=== PATIENT | female | born 1980 | race Caucasian/White ===

== ENCOUNTER 2017-11-28 10:13 | Emergency (ER) | payer OTHER ==
[2017-11-28 10:19] VITALS: BP 129/58; PULSE 79; RESP 18; TEMP 98.1
[2017-11-28] MEDS ORDERED: IBUPROFEN 600 MG TAB PO STA (10:33)
[2017-11-28] MEDS ORDERED: ONDANSETRON ODT 4 MG TAB PO STA (10:33)
[2017-11-28] MEDS ORDERED: traMADol 50 MG TAB PO STA (10:34)
--- NOTE | 2017-11-28 10:37 | ED ---
Upper Extremity HPI - General Chief Complaint: Extremity Injury, Upper Stated Complaint: right arm pain Time Seen by Provider: 11/28/17 10:21 Source: patient, RN notes reviewed Mode of arrival: ambulatory Limitations: no limitations - History of Present Illness Initial Comments: This a 36-year-old female presents emergency Department chief complaint right elbow pain. Patient states in bilateral last weeks getting progressively worse. She states that she's tried salt, medication minimal relief. Patient denies any discoloration, swelling or known trauma. She states it may have started after shoveling snow. She states it is worse with certain movements and seems to radiate at times. Patient is right-hand dominant. Denies any neck pain, headache, dizziness, chest pain or shortness of breath. - Related Data Previous Rx's Medication Instructions Recorded Ibuprofen [Motrin] 600 mg PO Q8HR PRN #30 tab 11/28/17 traMADol HCl [Ultram] 50 mg PO Q6H PRN #20 tab 11/28/17 Allergies Allergy/AdvReac Type Severity Reaction Status Date / Time Penicillins AdvReac Unknown Verified 11/28/17 10:39 Review of Systems ROS Statement: Those systems with pertinent positive or pertinent negative responses have been documented in the HPI. ROS Other: All systems not noted in ROS Statement are negative. Past Medical History Past Medical History: No Reported History History of Any Multi-Drug Resistant Organisms: None Reported Past Surgical History: Hysterectomy Smoking Status: Current every day smoker Past Alcohol Use History: Occasional Past Drug Use History: None Reported General Exam Limitations: no limitations General appearance: alert, in no apparent distress Head exam: Present: atraumatic, normocephalic, normal inspection Neck exam: Present: normal inspection, full ROM. Absent: tenderness, meningismus, lymphadenopathy Respiratory exam: Present: normal lung sounds bilaterally. Absent: respiratory distress, wheezes, rales, rhonchi, stridor Cardiovascular Exam: Present: regular rate, normal rhythm, normal heart sounds. Absent: systolic murmur, diastolic murmur, rubs, gallop, clicks Extremities exam: Present: other (Right elbow patient has full range of motion neurovascular intact right arm, radial pulses equal bilaterally there is no discoloration or swelling to her arm. Patient reports mild discomfort tenderness over the radial head region patient reports pain with pronation supination and resisted wrist extension. 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 Absent: motor sensory deficit Course Vital Signs 11/28/17 10:16 Temperature 98.1 F Pulse Rate 79 Respiratory 18 Rate Blood Pressure 129/58 O2 Sat by Pulse 100 Oximetry Medical Decision Making - Medical Decision Making 36-year-old female presented emergency from for right elbow pain. Patient's symptoms are consistent with lateral epicondylitis. Patient had x-ray which showed no acute abnormality. Patient is normal neurovascular status. Patient will be discharged with anti-inflammatories, tramadol advised follow-up with orthopedics return for any worsening symptoms. She should wear tennis elbow brace. Disposition Clinical Impression: Lateral epicondylitis of right elbow Disposition: HOME SELF-CARE Condition: Stable Instructions: Tennis Elbow (ED), Elbow Bursitis (ED) Additional Instructions: Please return to the Emergency Department if symptoms worsen or any other concerns. Prescriptions: Ibuprofen [Motrin] 600 mg PO Q8HR PRN #30 tab PRN Reason: Pain traMADol HCl [Ultram] 50 mg PO Q6H PRN #20 tab PRN Reason: Pain Referrals: None,Stated [Primary Care Provider] - 1-2 days Daniel Ibrahim DO [Doctor of Osteopathic Medicine] - 1-2 days Time of Disposition: 11:00
--- NOTE | 2017-11-28 10:46 | XR ---
EXAMINATION TYPE: XR elbow complete RT DATE OF EXAM: 11/28/2017 COMPARISON: NONE HISTORY: Pain FINDINGS: Three views of the elbow demonstrate no pathologic joint effusion. The osseous structures are intact . There is no acute fracture or dislocation. IMPRESSION: 1. No acute fracture or dislocation. If symptoms persist follow-up study in 7 to 10 days could be ob tained.
[2017-11-28] MEDS ORDERED: ONDANSETRON 4 MG ODT STARTER PACK 2 TAB BTL PO STA (11:11)
== END 2017-11-28 11:19 | disposition home or self-care (01) ==
LOC: EC 10:13
DX: M77.11 Lateral epicondylitis, right elbow (principal); F17.200 Nicotine dependence, unspecified, uncomplicated; Z88.0 Allergy status to penicillin
CPT/HCPCS: 73080; 99283; S0119

== ENCOUNTER 2018-03-18 11:13 | Emergency (ER) | payer OTHER ==
[2018-03-18 11:24] VITALS: TEMP 98.4
--- NOTE | 2018-03-18 12:24 | ED ---
Female Urogenital HPI - General Chief complaint: Urogenital Stated complaint: Female Time Seen by Provider: 03/18/18 11:34 Source: patient, RN notes reviewed, old records reviewed Mode of arrival: ambulatory Limitations: no limitations - History of Present Illness Initial comments: 37-year-old female presents emergency room with a chief complaint of vaginal irritation. She reports that she's been having symptoms for the past week. She reports severe pain with touching her skin, as well as purulent vaginal discharge. She reports of having these symptoms after returning from seeing her fiance in [place]. - Related Data Previous Rx's Medication Instructions Recorded Acyclovir 400 mg PO TID 10 Days 03/18/18 HYDROcodone/APAP 5-325MG [[place] 1 tab PO Q6HR PRN #10 tab 03/18/18 5-325] metroNIDAZOLE [Flagyl] 500 mg PO BID #14 tab 03/18/18 Allergies Allergy/AdvReac Type Severity Reaction Status Date / Time Penicillins AdvReac Unknown Verified 03/18/18 11:24 Review of Systems ROS Statement: Those systems with pertinent positive or pertinent negative responses have been documented in the HPI. ROS Other: All systems not noted in ROS Statement are negative. Past Medical History Past Medical History: No Reported History History of Any Multi-Drug Resistant Organisms: None Reported Past Surgical History: Hysterectomy Additional Past Surgical History / Comment(s): cyst from cervix Past Psychological History: No Psychological Hx Reported Smoking Status: Current every day smoker Past Alcohol Use History: Occasional Past Drug Use History: None Reported General Exam - General Exam Comments Initial Comments: 29-year-old female. Alert and oriented. No acute distress. Limitations: no limitations General appearance: alert, in no apparent distress Head exam: Present: atraumatic, normocephalic, normal inspection Eye exam: Present: normal appearance, PERRL, EOMI. Absent: scleral icterus, conjunctival injection, periorbital swelling ENT exam: Present: normal exam, mucous membranes moist Neck exam: Present: normal inspection. Absent: tenderness, meningismus, lymphadenopathy Respiratory exam: Present: normal lung sounds bilaterally. Absent: respiratory distress, wheezes, rales, rhonchi, stridor Cardiovascular Exam: Present: regular rate, normal rhythm, normal heart sounds. Absent: systolic murmur, diastolic murmur, rubs, gallop, clicks GI/Abdominal exam: Present: soft, normal bowel sounds. Absent: distended, tenderness, guarding, rebound, rigid External exam: Present: lesions (multiple .5 cm ulceration over labia majora and minora. Consistent with HSV. ). Absent: normal external exam Speculum exam: Present: vaginal discharge (copious purulent vaginal discharge), cervical discharge. Absent: normal speculum exam By manual exam: Present: normal by manual exam. Absent: cervical motion tenderness, adnexal tenderness, adnexal mass, uterine enlargement, uterine tenderness Extremities exam: Present: normal inspection, full ROM, normal capillary refill. Absent: tenderness, pedal edema, joint swelling, calf tenderness Back exam: Present: normal inspection Neurological exam: Present: alert, oriented X3, CN II-XII intact Psychiatric exam: Present: normal affect, normal mood Skin exam: Present: warm, dry, intact, normal color. Absent: rash Course Vital Signs 03/18/18 03/18/18 11:20 13:52 Temperature 98.4 F Pulse Rate 108 H 112 H Respiratory 18 16 Rate Blood Pressure 119/78 136/78 O2 Sat by Pulse 100 95 Oximetry Medical Decision Making - Medical Decision Making This is a a 37 year old female with vaginal irritation and discharge after returning home from [place] after seeing significant other. It appears that patient has HSV outbreak, no prior history. Will start the patient on acyclovir. During pelvic exam patient was extremely tender over open lesions from HSV. Patient also was found to have copious vaginal discharge. Discussed treatment for all STD prior to culture returning. Patient agrees, and was given Rocephin, Azithromycin, and Acyclovir in ED. Given a pain pill as well. Will treat the patient for BV, and patient trichomonas test is pending at this time. Will treat with Rx of Flagyl for one week. Discussed [facility] and PCP follow up. Return parameters discussed. - Lab Data Lab Results 03/18/18 03/18/18 03/18/18 Range/Units 12:20 12:20 13:15 Urine Color Yellow Urine Appearance Clear (Clear) Urine pH 6.5 (5.0-8.0) Ur Specific [place] 1.016 (1.001-1.035) Urine Protein Negative (Negative) Urine Glucose (UA) Trace H (Negative) Urine Ketones Negative (Negative) Urine Blood Negative (Negative) Urine Nitrite Negative (Negative) Urine Bilirubin Negative (Negative) Urine Urobilinogen <2.0 (<2.0) mg/dL Ur Leukocyte Esterase Small H (Negative) Urine RBC 3 (0-5) /hpf Urine WBC 4 (0-5) /hpf Ur Squamous Epith Cells 1 (0-4) /hpf Urine Mucus Occasional H (None) /hpf Urine HCG, Qual Not Detected (Not Detectd) Trichomonas Ag (Rapid) Positive H (Negative) Disposition Clinical Impression: Herpes genitalia, Vaginal Discharge Disposition: HOME SELF-CARE Condition: Good Instructions: Genital Herpes Simplex (ED) Additional Instructions: Patient advised to follow-up with primary care provider. He'll be notified of your results in 1-2 days. Return to emergency department if any alarming signs or symptoms occur. Prescriptions: Acyclovir 400 mg PO TID 10 Days HYDROcodone/APAP 5-325MG [[place] 5-325] 1 tab PO Q6HR PRN #10 tab PRN Reason: Pain metroNIDAZOLE [Flagyl] 500 mg PO BID #14 tab Is patient prescribed a controlled substance at d/c from ED?: Yes When asked, does pt state using other controlled substances?: No If prescribed controlled substance>3 days was MAPS reviewed?: Prescribed <3 Days If opioid is for acute pain is fill amount 7 days or less?: Yes If Rx opioid, was Start Talking consent form obtained?: Yes Referrals: Kenny Patel MD [Primary Care Provider] - 1-2 days Time of Disposition: 13:06
[2018-03-18 13:00] LABS: Appearance,Urine Clear (Clear); Bilirubin,Urine Negative (Negative); Blood,Urine Negative (Negative); Color,Urine Yellow; Glucose,Urine (UA) Trace (Negative); Ketones,Urine Negative (Negative); Leukocyte Esterase,Urine Small (Negative); Mucus,Urine Occasional /hpf; Nitrite,Urine Negative (Negative); PH, Urine 6.5 (5.0-8.0); Protein,Urine Negative (Negative); RBC,Urine 3 /hpf (0-5); Specific Gravity,Urine 1.016 (1.001-1.035); Squamous Epithelial Cell,Urine 1 /hpf (0-4); Urobilinogen,Urine <2.0 mg/dL (<2.0); WBC,Urine 4 /hpf (0-5)
[2018-03-18] MEDS ORDERED: ACYCLOVIR 400 MG/10 ML CUP PO ONE (13:04)
[2018-03-18] MEDS ORDERED: cefTRIAXone 250 MG VIAL IM STA (13:04)
[2018-03-18] MEDS ORDERED: HYDROcodone/APAP 5-325MG 1 EACH TAB PO STA (13:04)
[2018-03-18] MEDS ORDERED: AZITHROMYCIN 500 MG TAB PO STA (13:04)
[2018-03-18] MEDS ORDERED: ACYCLOVIR 200 MG CAP PO ONE (13:30)
[2018-03-18 13:53] VITALS: BP 136/78; PULSE 112; RESP 16
[2018-03-21 14:43] LABS: N. gonorrhoeae,PCR Negative (Neg,Equiv); Neisseria Source Vagina
[2018-03-21 14:50] LABS: C. trachomatis,PCR Negative (Neg,Equiv); Chlamydia trachomatis Source Vagina
== END 2018-03-18 13:56 | disposition home or self-care (01) ==
LOC: EC 11:13
DX: A60.09 Herpesviral infection of other urogenital tract (principal); N89.8 Other specified noninflammatory disorders of vagina; F17.200 Nicotine dependence, unspecified, uncomplicated; Z88.0 Allergy status to penicillin
CPT/HCPCS: 81001; 81025; 87808; 87491; 87591; 87070; 99284; 96372; J0696; 87205

== ENCOUNTER 2018-03-25 11:37 | Emergency (ER) | payer OTHER ==
[2018-03-25 11:50] VITALS: BP 113/76; PULSE 103; RESP 18; TEMP 98.3
--- NOTE | 2018-03-25 12:41 | ED ---
General Adult HPI - General Chief complaint: Recheck/Abnormal Lab/Rx Stated complaint: med refill Time Seen by Provider: 03/25/18 12:11 Source: patient, RN notes reviewed Mode of arrival: ambulatory Limitations: no limitations - History of Present Illness Initial comments: 37-year-old female presented to the emergency room for recheck. Patient was seen in the emergency room one week ago diagnosed with Trichomonas and bacterial vaginosis, herpes flareup. Patient states she's been on acyclovir and Flagyl. She states she took her last dose of Flagyl which she was on for 7 days twice a day. Patient states still having some discharge at times. She does admit that has been big improvement. She states she was concerned that she is unable to see the family doctor for a few days and unsure if she was able to continue medication. Patient denies any other symptoms or complaints started. Patient denies any recent fever, chills, shortness of breath, chest pain, back pain, abdominal pain, nausea or vomiting, numbness or tingling, headaches or visual changes, or any other complaints. - Related Data Previous Rx's Medication Instructions Recorded Acyclovir 400 mg PO TID 10 Days 03/18/18 metroNIDAZOLE [Flagyl] 500 mg PO BID #14 tab 03/18/18 metroNIDAZOLE 0.75% VAGINAL 1 applic VAGINAL BID 7 Days tube 03/25/18 [Metrogel Vaginal] Allergies Allergy/AdvReac Type Severity Reaction Status Date / Time ondansetron [From Zofran] Allergy Unknown Verified 03/25/18 11:44 Penicillins AdvReac Unknown Verified 03/18/18 11:24 Review of Systems ROS Statement: Those systems with pertinent positive or pertinent negative responses have been documented in the HPI. ROS Other: All systems not noted in ROS Statement are negative. Past Medical History Past Medical History: No Reported History Additional Past Medical History / Comment(s): herpes History of Any Multi-Drug Resistant Organisms: None Reported Past Surgical History: Hysterectomy Additional Past Surgical History / Comment(s): cyst from cervix Past Psychological History: No Psychological Hx Reported Smoking Status: Current every day smoker Past Alcohol Use History: Occasional Past Drug Use History: None Reported General Exam - General Exam Comments Initial Comments: General: The patient is awake and alert, in no distress, and does not appear acutely ill. Eye: xtra-ocular movements are intact. No nystagmus. There is normal conjunctiva bilaterally. No signs of icterus. Ears, nose, mouth and throat: There are moist mucous membranes and no oral lesions. Neck: The neck is suppl Musculoskeletal: Normal ROM, no tenderness. Strength 5/5. Sensation intact. Neurological: A&O x 3. CN II-XII intact, There are no obvious motor or sensory deficits. Coordination appears grossly intact. Speech is normal. Skin: Skin is warm and dry and no rashes or lesions are noted. Psychiatric: Cooperative, appropriate mood & affect, normal judgment. Limitations: no limitations Course Vital Signs 03/25/18 11:45 Temperature 98.3 F Pulse Rate 103 H Respiratory 18 Rate Blood Pressure 113/76 O2 Sat by Pulse 100 Oximetry Medical Decision Making - Medical Decision Making Patient will be given course of Flagyl cream for her symptoms advised following up with [facility]/family doctor over the next 2-5 days. Disposition Clinical Impression: Herpes genitalia, Trichomonas vaginitis Disposition: HOME SELF-CARE Condition: Good Instructions: Trichomoniasis (ED) Additional Instructions: Please follow-up with [facility] and her family doctor over the next 2-5 days. Please use medications as prescribed and return here to the emergency room for any symptoms increase or worsen or for any other concerns. Prescriptions: metroNIDAZOLE 0.75% VAGINAL [Metrogel Vaginal] 1 applic VAGINAL BID 7 Days tube Is patient prescribed a controlled substance at d/c from ED?: No Referrals: Kenny Patel MD [Primary Care Provider] - 1-2 days Time of Disposition: 12:36
== END 2018-03-25 12:44 | disposition home or self-care (01) ==
LOC: EC 11:37
DX: A60.09 Herpesviral infection of other urogenital tract (principal); A59.01 Trichomonal vulvovaginitis; Z76.0 Encounter for issue of repeat prescription; F17.200 Nicotine dependence, unspecified, uncomplicated; Z88.8 Allergy status to other drugs, medicaments and biological substances; Z88.0 Allergy status to penicillin
CPT/HCPCS: 99282